=== PATIENT | male | born 1940 | race Caucasian/White ===

== ENCOUNTER → 2016-04-26 | Outpatient (CLI) | payer OTHER, MEDICARE ==
[~2016-04-26] MED LIST: ACC10 PO; ASPI81TA21 PO; CLR10 PO; GLIP-197 PO; HYDR25TA4 PO; OPTIRAY 320 IV PRN; SILO8CAP PO; SIMV20TA2 PO
[2016-04-26 11:07] LABS: BLOOD UREA NITROGEN 25 mg/dl (7-18)
--- NOTE | 2016-04-26 12:32 | DIAGNOSTIC IMAGING REPORT ---
CT SCAN OF THE CHEST WITH IV CONTRAST CLINICAL HISTORY: Follow-up abnormal chest x-ray. COMPARISON STUDY: Chest radiograph dated 01/13/2016 and 01/01/2015. TECHNIQUE: Following the IV administration of 101 cc of Optiray 320, CT scan of the thorax was performed from the thoracic inlet to the upper abdomen. Images are reviewed in the axial, sagittal, and coronal planes. IV contrast was administered without complication. CT DOSE: 719.85 mGycm FINDINGS: Thyroid: Imaged portions of the thyroid gland are normal in size and attenuation. Thoracic aorta: There is mild atherosclerotic calcification of the thoracic aorta, which is normal in caliber and demonstrates standard 3-vessel arch anatomy. No dissection is seen. Pulmonary vasculature: The pulmonary trunk is normal in caliber. There are no filling defects identified in the central pulmonary vessels to indicate pulmonary embolus. Note that this examination was not protocoled for evaluation of the pulmonary arteries. Heart: The heart is mildly enlarged and there is trace pericardial effusion. The coronary arteries and aortic valve leaflets are densely calcified. Lungs and pleural spaces: Linear subpleural opacities are identified at the right lung base and are typical appearance for scarring. This corresponds to the radiographic abnormality seen on 01/13/2016. There is no airspace consolidation typical for pneumonia or pleural effusion. Small fat-containing Bochdalek hernias are noted. The trachea and central airways are clear. Mediastinum: There is no mediastinal lymphadenopathy. [place]: Clear. Axillae: There is no axillary lymphadenopathy. Upper abdomen: The liver shows evidence of steatosis. The spleen is mildly enlarged measuring 14.7 cm in length. A tiny hiatal hernia is identified. There is glandular atrophy of the imaged pancreas. Cortical atrophy is noted in the partially visualized kidneys. Nodular thickening is noted in the adrenal glands. Skeletal structures: The skeletal structures are osteopenic. Degenerative change is noted throughout the thoracic spine. There are numerous healed right-sided rib fractures. No lytic or blastic bony lesions are seen. IMPRESSION: 1. There is no airspace consolidation typical for pneumonia or pleural effusion. 2. Linear subpleural opacities are noted at the right lung base, and this corresponds to the abnormality seen on chest radiographs. The appearance is typical for scarring, and this is likely related to remote trauma as there are numerous overlying healed rib fractures. No concerning pulmonary lesion is identified. This has been seen dating back to at least 2014 by x-ray. 3. Cardiomegaly. 4. Hepatic steatosis. 5. Mild splenomegaly. 6. Additional findings as above. Electronically signed by: Dwayne Bender M.D. 04/26/2016 12:30 PM Dictated Date/Time: 04/26/2016 12:23 PM
== END | disposition home or self-care (01) ==
LOC: C.CTS 10:03
PROVIDERS: ATTEND Internal Medicine Pulmonary Disease
DX: R93.8 Abnormal findings on diagnostic imaging of other specified body structures (principal); E11.9 Type 2 diabetes mellitus without complications; R91.8 Other nonspecific abnormal finding of lung field; I51.7 Cardiomegaly; K76.0 Fatty (change of) liver, not elsewhere classified